=== PATIENT | male | born 2000 ===

== ENCOUNTER 2022-07-19 10:44 | Emergency (ER) | payer BC ==
[2022-07-19 11:54] LABS: PTT,PARTIAL THROMBOPLSTIN TIME 32.1 SEC (23.6-29.8)
[2022-07-19] MEDS ORDERED: Sodium Chloride 0.9% 10 ML Syringe FLUSH PRN (12:05)
[2022-07-19 12:23] LABS: ANION GAP 12.4 meq/L (7-15)
[2022-07-19] MEDS ORDERED: Iopamidol 612 MG/ML 100 ML Bottle IVPUSH ONE (12:27)
== END 2022-07-19 13:04 | disposition home or self-care (01) ==
LOC: LL.ED 10:44
DX: R10.11 Right upper quadrant pain (principal); E66.9 Obesity, unspecified; Z68.36 Body mass index [BMI] 36.0-36.9, adult
CPT/HCPCS: 36415; 74177; 80053; 81003; 82150; 83690; 83735; 84100; 85025; 85610; 85730; 86140; 99284; Q9967